=== PATIENT | male | born 1960 | race Caucasian/White ===

== ENCOUNTER → 2017-03-22 | Outpatient (CLI) | payer BC | LOC: CARD 11:56 | PROVIDERS: ATTEND Nurse Practitioner Family | DX: I25.10 Atherosclerotic heart disease of native coronary artery without angina pectoris (principal); I25.5 Ischemic cardiomyopathy | CPT/HCPCS: 93306 ==

== ENCOUNTER 2020-11-08 13:00 | Day surgery (SDC) | payer BC ==
[~2020-11-08] VITALS: Ht 172 cm; Wt 94.0 kg
[2020-11-08 11:23] VITALS: BP 148/86
[2020-11-08 11:37] LABS: HEMOGLOBIN 14.8 g/dL (13.3-17.7)
[2020-11-08 11:52] LABS: PROTHROMBIN TIME PATIENT 13.3 SEC (12.2-14.7)
[2020-11-08 11:59] LABS: ALANINE AMINOTRANSFERASE 45 U/L (0-55); ALBUMIN 4.5 GM/DL (3.2-4.5); ALKALINE PHOSPHATASE 87 U/L (40-136); BILIRUBIN,TOTAL 1.3 MG/DL (0.1-1.0); BUN/CREATININE RATIO 16; CALCIUM 9.1 MG/DL (8.5-10.1); CARBON DIOXIDE 24 MMOL/L (21-32); CHLORIDE 109 MMOL/L (98-107); CHOLESTEROL 135 MG/DL (< 200); CREATININE SERUM 1.11 MG/DL (0.60-1.30); GFR ESTIMATED > 60; GLUCOSE 106 MG/DL (70-105); HDL CHOLESTEROL 35 MG/DL (40-60); POTASSIUM 4.4 MMOL/L (3.6-5.0); SODIUM 140 MMOL/L (135-145); TOTAL PROTEIN 7.8 GM/DL (6.4-8.2); TRIGLYCERIDES 101 MG/DL (<150); VLDL CHOLESTEROL 20 MG/DL (5-40)
[~2020-11-08 13:00] MED LIST: ASPI-999 PO; BACITRACIN INJECTION 50,000 UNIT, SODIUM CHLORIDE 0.9% IRRIGATIO 500 ML IR ONE; CARV12.52 PO; CLOP75TA28 PO; HEParin (CATH LAB) 1,000 ML IV ONE; LIDOCAINE 1% INJ 20 ML 20 ML VIAL ONE; LISI20TA26 PO; NS IV 1000 ML 1,000 ML IV SCH; NS IV 1000 ML 1,000 ML ONE; SIMV40TA25 PO; ceFAZolin INJECTION 1,000 MG ONE
[2020-11-08] MEDS ORDERED: MIDAZOLAM 5 MG/5 ML (VERSED) VIAL ONE ×2 (13:50→14:19)
[2020-11-08] MEDS ORDERED: fentaNYL INJ 100 MCG/2 ML AMP ONE ×2 (13:50→14:19)
--- NOTE | 2020-11-08 15:09 | Cardiac Procedure Note-CS/ASA ---
Pre-Procedure Note Pre-Op Procedure Note H&P Reviewed The H&P was reviewed, patient examined and no changes noted. Date H&P Reviewed: November 08, 2020 Time H&P Reviewed: 14:30 Conscious Sedation Pre-Proced Time 14:30 ASA Score 3 For ASA 3 and 4: Consider anesthesia and medical clearance. Also, for patients with a history of failed moderate sedation consider anesthesia. Airway Lungs Heart ASA score ASA 1: a normal healthy patient ASA 2: a patient with a mild systemic disease (mid diabetes, controlled hypertension, obesity ASA 3: a patient with a severe systemic disease that limits activity (angina, COPD, prior Myocardial infarction) ASA 4: a patient with an incapacitating disease that is a constant threat to life (CHF, renal failure) ASA 5: a moribund patient not expected to survive 24 hrs. (ruptured aneurysm) ASA 6: a declared brain- patient whose organs are being harvested. For emergent operations, add the letter E after the classification Mallampati Classification Grade 2 Sedation Plan Analgesia, Amnesia, Plan communicated to team members, Discussed options with patient/fam, Discussed risks with patient/fam The patient is an appropriate candidate to undergo the planned procedure, sedation, and anesthesia. The patient immediately re-assessed prior to indication. JOSEE REYES MD FACP FAC CCDS November 08, 2020 15:09
[2020-11-08] MEDS ORDERED: ACET325T38 PO (15:14)
[2020-11-08] MEDS ORDERED: CEFU500T63 PO (15:14)
--- NOTE | 2020-11-08 15:14 | Discharge Inst-Cardiology ---
Discharge Inst-Cardiac Discharge Medications New Medications: Acetaminophen (Tylenol) 325 Mg Tablet 650 MG PO Q6H PRN for PAIN-MODERATE (5-7), #50 TAB 3 Refills Cefuroxime Axetil (Cefuroxime) 500 Mg Tablet 500 MG PO BID for 5 Days, #10 TAB 0 Refills Continued Medications: Aspirin (Aspirin) 81 Mg Tab.chew 81 MG PO DAILY, TAB Carvedilol (Coreg) 12.5 Mg Tablet 12.5 MG PO BID, TAB Clopidogrel Bisulfate (Clopidogrel) 75 Mg Tablet 75 MG PO DAILY, TAB Lisinopril (Lisinopril) 20 Mg Tablet 20 MG PO DAILY, TAB Simvastatin (Simvastatin) 40 Mg Tablet 40 MG PO HS, TAB JOSEE REYES MD FACP FAC CCDS November 08, 2020 15:14
[2020-11-08] MEDS ORDERED: PATIENT MAY USE OWN MEDS, ALL PO SCH (15:15)
[2020-11-08] MEDS ORDERED: NS IV 1000 ML 1,000 ML IV SCH (15:15)
--- NOTE | 2020-11-08 15:15 | Discharge Inst-Post Device ---
Discharge Inst-Post Device Follow up/Plan F/u at Dr Mancia's on 11/11/20 for wound inspection F/u at Dr Mancia's for doctor visit in 2 weeks Heart Healthy Diet. Leave dressing on until follow up at the office. JOSEE MANCIA MD FACP FAC CCDS November 08, 2020 15:15
[2020-11-08 16:00] VITALS: BP 98/65
[2020-11-08 17:00] VITALS: BP 112/73
--- NOTE | 2020-11-08 20:41 | Diagnostic Imaging Report ---
INDICATION: ICD change. Frontal chest obtained at 06:19 p.m. There is no prior study for comparison. Heart is normal in size. The patient has had prior sternotomy. The lungs are clear except for some mild linear scarring or atelectasis in the left base. There is no pneumothorax or pleural fluid. Dual-lead pacemaker device is in place. IMPRESSION: Pacemaker device in place. No pneumothorax or pleural fluid or focal infiltrate. There is mild linear scarring or atelectasis in the left base. Dictated by: Dictated on workstation # [id number]
--- NOTE | 2020-11-08 21:31 | OPERATIVE REPORT ---
DATE OF SERVICE: 11/08/2020 PREOPERATIVE DIAGNOSIS: Dual chamber pacemaker defibrillator at elective replacement indicator. POSTOPERATIVE DIAGNOSIS: Dual chamber pacemaker defibrillator at elective replacement indicator. PROCEDURE: Pulse generator change. ESTIMATED BLOOD LOSS: Less than 10 mL. INDICATIONS: The patient is a 60-year-old gentleman who has a dual chamber pacemaker defibrillator in place that has reached elective replacement indicator. Informed consent was obtained for pulse generator change. DESCRIPTION OF PROCEDURE: He was brought to the cardiac catheterization laboratory in a fasting state. The left prepectoral area is the site of the device implantation. This was prepared and draped in the usual sterile fashion. Sharp and blunt dissection was used to open the device pocket and the device was removed from the pocket and detached from the leads. A new device was attached to the old leads and the device was placed back into the same pocket after ensuring good hemostasis and after irrigating the pocket with an antibiotic solution. The pocket was then closed in 2 layers using 3.0 Vicryl. The explanted device is [employer] product #[id number] with serial #[id number]. The newly implanted device is Medtronic model [id number] with serial #[id number]. Right ventricular capture threshold is 0.75 volts at 0.4 milliseconds and the right atrial capture threshold was 0.75 volts at 0.4 milliseconds. Pacing impedance in the ventricle is 440 ohms and in the right atrium is 382 ohms. R waves are measured at 13 millivolts. P waves are measured at 2.5 millivolts. Job ID: [id number] DocumentID: [id number] Dictated Date: 11/08/2020 15:20:41 Youth Officer Date: 11/08/2020 21:30:12 Dictated By: JOSEE REYES MD, MA, FACP, FACC,
== END 2020-11-08 18:40 | disposition home or self-care (01) ==
LOC: CATH 13:00 → ICU 15:36 → CATH 18:40
PROVIDERS: ATTEND Internal Medicine Cardiovascular Disease
DX: Z45.010 Encounter for checking and testing of cardiac pacemaker pulse generator [battery] (principal); E78.5 Hyperlipidemia, unspecified; I25.10 Atherosclerotic heart disease of native coronary artery without angina pectoris; E78.2 Mixed hyperlipidemia; I65.23 Occlusion and stenosis of bilateral carotid arteries; E66.9 Obesity, unspecified; Z68.31 Body mass index [BMI] 31.0-31.9, adult; Z79.82 Long term (current) use of aspirin; Z79.899 Other long term (current) drug therapy; Z87.891 Personal history of nicotine dependence; Z95.1 Presence of aortocoronary bypass graft
CPT/HCPCS: 33263; 71045; 80053; 80061; 85027; 85610; 85730; 87081; C1721; 36415

== ENCOUNTER → 2021-06-13 | Outpatient (CLI) | payer BC ==
[~2021-06-13] MED LIST changes: +ACET325T38 PO; -BACITRACIN INJECTION 50,000 UNIT, SODIUM CHLORIDE 0.9% IRRIGATIO 500 ML IR ONE; +CATHETER FLUSH 10 ML SYR IV PRN; +CEFU500T63 PO; -HEParin (CATH LAB) 1,000 ML IV ONE; -LIDOCAINE 1% INJ 20 ML 20 ML VIAL ONE; -NS IV 1000 ML 1,000 ML IV SCH; -NS IV 1000 ML 1,000 ML ONE; +REGADENOSON 0.4 MG/5 ML SYR (LEXISCAN) IV ONE; -ceFAZolin INJECTION 1,000 MG ONE
[2021-06-13 13:09] VITALS: BP 153/90
--- NOTE | 2021-06-14 16:10 | STRESS TEST ---
DATE OF SERVICE: 06/13/2021 RESTING AND POST REGADENOSON TECHNETIUM-99M TETROFOSMIN SPECT CT IMAGING ORDERING PHYSICIAN: Dr. Mancia. PRIMARY PHYSICIAN: Dr. Wei. OTHER PHYSICIAN: PITER Adamson CLINICAL DIAGNOSIS: Coronary artery disease. Baseline images were carried out after injection of 10.05 mCi of technetium-99m Tetrofosmin. This was followed by 0.4 mg regadenoson and 31.1 mCi of technetium-99m Tetrofosmin for stress imaging. The electrocardiogram showed sinus rhythm with evidence of inferoseptal myocardial infarction. There is nonspecific ST and T-wave abnormality. This did not change significantly with regadenoson infusion. He was mildly short of breath following regadenoson infusion, which resolved in a few minutes. Review of images at rest and following stress indicates a large inferolateral and inferoseptal perfusion defect that is predominantly fixed. Gated images show inferolateral and inferoseptal hypokinesis to akinesis. Left ventricular ejection fraction is calculated to be 28%. Left ventricular end-diastolic volume is 157 mL. TID is absent (1.03). CONCLUSIONS: 1. This study indicates a large inferolateral and inferoseptal myocardial infarction. 2. Inferolateral and inferoapical septal hypokinesis to akinesis. 3. Marked cardiomegaly. 4. Impairment of global left ventricular systolic function with a calculated ejection fraction of 28%. Job ID: [id number] DocumentID: [id number] Dictated Date: 06/14/2021 12:51:35 Ell Teacher Date: 06/14/2021 16:10:13 Dictated By: JOSEE MANCIA MD, MA, FACP, FACC,
== END ==
LOC: CARD 10:35
PROVIDERS: ATTEND Internal Medicine Cardiovascular Disease
DX: I51.7 Cardiomegaly (principal); I25.10 Atherosclerotic heart disease of native coronary artery without angina pectoris; I25.5 Ischemic cardiomyopathy; Z95.1 Presence of aortocoronary bypass graft
CPT/HCPCS: 78452; 93017; 93306; A9502